=== PATIENT | male | born 1965 | race Caucasian/White ===

== ENCOUNTER 2017-02-07 17:55 | Emergency (ER) | payer OTHER | END 2017-02-07 20:25 | disposition home or self-care (01) | LOC: ER 17:55 | DX: E86.0 Dehydration (principal); E87.6 Hypokalemia; R06.02 Shortness of breath; E11.9 Type 2 diabetes mellitus without complications; I10 Essential (primary) hypertension; E66.9 Obesity, unspecified; I48.91 Unspecified atrial fibrillation; Z79.82 Long term (current) use of aspirin; Z79.899 Other long term (current) drug therapy | CPT/HCPCS: 36415; 87502; 96365 ==